=== PATIENT | female | born 1990 | race Caucasian/White ===

== ENCOUNTER 2020-04-22 18:32 | Emergency (ER) | payer OTHER ==
[~2020-04-22] VITALS: Ht 165.1 cm; Wt 70.3 kg
[~2020-04-22 18:32] MED LIST: ACETAMINOPHEN325 M1 PO; ALINIA 500 MG500 M1 PO; ARTHRITIS PAIN650 M2; NOHOMEMEDICATIONS; NORCO 5-325 TA1 EACH PO; ZOFRAN 4 MG ORAL4 MG; ZOFRAN ODT4 MG PO; ZOFRAN4 MG PO
[2020-04-22] MEDS ORDERED: COLESTIPOL HCL1 G1 PO (19:50)
[2020-04-22] MEDS ORDERED: DULOXETINE HCL30 MG PO (19:51)
[2020-04-22 20:47] VITALS: BP 114/78
== END 2020-04-22 20:56 | disposition home or self-care (01) ==
LOC: ER 18:32
DX: G43.909 Migraine, unspecified, not intractable, without status migrainosus (principal); Z20.828 Contact with and (suspected) exposure to other viral communicable diseases; R11.2 Nausea with vomiting, unspecified; R50.9 Fever, unspecified; Z88.2 Allergy status to sulfonamides; Z90.49 Acquired absence of other specified parts of digestive tract

== ENCOUNTER 2020-11-20 19:21 | Emergency (ER) | payer BC, OTHER ==
[~2020-11-20] VITALS: Ht 162.6 cm; Wt 68.0 kg
[~2020-11-20 19:21] MED LIST changes: +COLESTIPOL HCL1 G1 PO; +DULOXETINE HCL30 MG PO
[2020-11-20 21:00] LABS: ABSOLUTE NEUTROPHILS 4.6 thou/uL (1.4-8.2); BASOPHILS 1.3 % (0.0-2.0); EOSINOPHILS 2.3 % (0.0-3.0); HEMATOCRIT 38.8 % (37.0-47.0); HEMOGLOBIN 13.5 gm/dL (12.0-15.0); LYMPHOCYTES 22.7 % (24.0-44.0); MCH 33.5 pg (26.0-34.0); MCHC 34.8 g/dL (28.0-37.0); MCV 96.3 fL (80.0-100.0); MONOCYTES 10.5 % (1.0-8.0); PLATELET COUNT 236 thou/uL (150-400); POLYS 63.2 % (36.0-66.0); RBC 4.02 mil/uL (4.20-5.00); RDW 12.7 % (10.5-14.5); WBC 7.3 thou/uL (4.0-11.0)
[2020-11-20 21:13] LABS: CALCIUM 9.6 mg/dL (8.5-10.1); CREATININE 0.7 mg/dL (0.6-1.0); POTASSIUM 3.8 mmol/L (3.5-5.1)
[2020-11-20 21:19] LABS: ALBUMIN 4.1 g/dL (3.4-5.0); TOTAL BILIRUBIN 0.5 mg/dL (0.2-1.0); TOTAL PROTEIN 7.6 g/dL (6.4-8.2)
[2020-11-20] MEDS ORDERED: CARAFATE1 GM PO (22:51)
[2020-11-20] MEDS ORDERED: OMEPRAZOLE 20 M20 M1 PO (22:51)
[2020-11-20 23:13] VITALS: BP 121/71
== END 2020-11-20 23:14 | disposition home or self-care (01) ==
LOC: ER 19:21
PROVIDERS: Emergency Medicine
DX: K29.70 Gastritis, unspecified, without bleeding (principal); R10.9 Unspecified abdominal pain; G43.909 Migraine, unspecified, not intractable, without status migrainosus; F32.9 Major depressive disorder, single episode, unspecified; Z90.49 Acquired absence of other specified parts of digestive tract; Z79.899 Other long term (current) drug therapy; Z88.2 Allergy status to sulfonamides